=== PATIENT | male | born 1950 | race Two or more races ===

== ENCOUNTER 2020-02-16 11:50 | Emergency (ER) | payer SELFPAY ==
[~2020-02-16] VITALS: Ht 165.1 cm; Wt 74.8 kg
[2020-02-16 12:30] VITALS: BP 152/87
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
[2020-02-16] MEDS ORDERED: TYLENOL EXTRA500 MG ORAL (13:37)
[2020-02-16] MEDS ORDERED: LIDODERM700 M1 TOPIC (13:37)
--- NOTE | 2020-02-16 13:40 | Diagnostic Imaging Report ---
Indication: Back pain Comparison: None Findings: 3 views of the lumbar spine were obtained. Alignment is normal. There is mild sclerosis and hypertrophy of the lower lumbar facets. Mild endplate osteophytes noted in the lower thoracic spine. IMPRESSION: Degenerative changes as described above
[2020-02-16 13:44] VITALS: BP 152/87
--- NOTE | 2020-02-16 13:45 | NUR ---
ED Nurse Note: Pt cleared by health care Provider for discharge. DC instructions/prescription was given and explained to pt and verbalized understanding of teachings. All medical deviecs such as ID band removed. Pt is AAO x4, ambulatory and left with all personal belongings.
== END 2020-02-16 13:45 | disposition home or self-care (01) ==
LOC: EMR 12:45
DX: S39.012A Strain of muscle, fascia and tendon of lower back, initial encounter (principal); S16.1XXA Strain of muscle, fascia and tendon at neck level, initial encounter; R51 Headache; V49.9XXA Car occupant (driver) (passenger) injured in unspecified traffic accident, initial encounter; Y92.410 Unspecified street and highway as the place of occurrence of the external cause
CPT/HCPCS: 72020; 99283